=== PATIENT | male | born 1995 | race Caucasian/White ===

== ENCOUNTER 2019-05-10 11:21 | Emergency (ER) | payer SELFPAY ==
[2019-05-10 11:38] VITALS: BP 124/68; PULSE 101; TEMP 101.2; BMI 32.5
[2019-05-10] MEDS ORDERED: IBUPROFEN 600 MG TABLET (FP) PO ONE ×2 (11:55→11:57)
--- NOTE | 2019-05-10 11:56 | PDOC ---
History of Present Illness - General Chief Complaint: Sore Throat Stated Complaint: FEVER/ SORE THROAT Time Seen by Provider: 05/10/19 11:50 History Source: Patient Exam Limitations: No Limitations - History of Present Illness Initial Comments: 05/10/19 11:55 Patient here with complaints of fevers, cough, body aches and sore throat pain 3 days. Has used only Tylenol yesterday Is this a multiple visit Asthma Patient?: No Presenting Symptoms: Yes: fever, runny nose, persistent cough, vomiting Past History - Travel Traveled outside of the country in the last 30 days: No Close contact w/someone who was outside of country & ill: No - Past History Allergies/Adverse Reactions: Allergies No Known Allergies Allergy (Verified 05/10/19 11:47) General Medical History: Yes: no pertinent history Immunization Status Up to Date: Yes - Social History Smoking Status: Never smoked Review of Systems - Review of Systems Able to Perform ROS?: Yes Is the patient limited Macedonian proficient: Yes Constitutional: Yes: Symptoms Reported, See HPI, Chills, Fever, Malaise HEENTM: Yes: Symptoms Reported, See HPI, Nose Congestion, Throat Pain Respiratory: Yes: See HPI, Cough Neurological: Yes: Symptoms reported, See HPI, Headache (frontal ) All Other Systems: Reviewed and Negative *Physical Exam - Vital Signs Last Vital Signs Temp Pulse Resp BP Pulse Ox 101.2 F H 101 H 16 124/68 96 05/10/19 11:36 05/10/19 11:36 05/10/19 11:36 05/10/19 11:36 05/10/19 11:36 - Physical Exam Comments: 05/10/19 11:57 GENERAL: [ The pateint is awake, alert, and appropriately interactive.] EYES: [The pupils are equal, round, and reactive to light, with clear, conjunctiva.but glassy] NOSE: [The nose with clear drainage EARS: [The ear canals and tympanic membranes are congested but landmarks easily visualed ] THROAT: [The oropharynx is clear with erythema, no exudates. The mucous membranes are moist.] NECK: [The neck is supple with mildly tender adenopathy, no menigemous] CHEST: [The lungs are coarse but clear without crackles, or wheezes.] HEART: [Heart is regular rhythm, with normal S1 and S2, no murmurs.] ABDOMEN: [The abdomen is soft and nontender with normal bowel sounds. There is no organomegaly and no mass. There is no guarding or rebound.] EXTREMITIES: [Extremities are normal.] NEURO: [Behavior is normal for age.cranky but easily, Tone is normal.] SKIN: [Skin is unremarkable without rash or swelling. There is no bruising, and there are no other signs of injury.] General Appearance: Yes: Nourished, Appropriately Dressed, Apparent Distress HEENT: positive: FAR[place], Nasal Congestion, Rhinorrhea, Sinus Tenderness. negative : TMs Normal Neck: positive: Tender, Supple, Lymphadenopathy (R), Lymphadenopathy (L) Respiratory/Chest: positive: Lungs Clear, Normal Breath Sounds Gastrointestinal/Abdominal: positive: Normal Bowel Sounds, Soft. negative: Tender Extremity: positive: Normal Capillary Refill, Normal Inspection, Normal Range of Motion Integumentary: positive: Warm, Pale Neurologic: positive: social services coordinator II-XII NML intact, Fully Oriented, Alert, Normal Mood/ Affect, Normal Response, Motor Strength 5/5 *DC/Admit/Observation/Transfer Diagnosis at time of Disposition: Upper respiratory infection, viral - Discharge Dispostion Disposition: HOME Condition at time of disposition: Stable Decision to Admit order: No - Referrals - Patient Instructions Printed Discharge Instructions: DI for Viral Upper Respiratory Infection -- Adult Additional Instructions: Rest, drink lots of fluids: Teas, water, soups, Pedialyte Saltwater gargles Steamy showers/seem to face break up mucus Avoid contact with others until fevers and cough resolved Lots of handwashing and good hygiene Continue [id number] medications for symptomatic relief Tylenol or Motrin for fever and pain Followup with private physician in one to 2 days as needed Return to emergency department for worsened symptoms, fevers, dehydration - Post Discharge Activity Forms/Work/School Notes: Back to Work
== END 2019-05-10 12:40 | disposition home or self-care (01) ==
LOC: JERFT 11:21
DX: J06.9 Acute upper respiratory infection, unspecified (principal); B97.89 Other viral agents as the cause of diseases classified elsewhere
CPT/HCPCS: 87804; 99281-25

== ENCOUNTER 2022-02-17 09:42 | Emergency (ER) | payer SELFPAY ==
[2022-02-17 09:50] VITALS: BP 135/96; PULSE 88; TEMP 99.3; BMI 355.8
[2022-02-17 11:42] LABS: THROAT:GRP A STREP NOT DETECTED (NOTDETECTED)
== END 2022-02-17 11:37 | disposition home or self-care (01) ==
LOC: JER 09:42
DX: J06.9 Acute upper respiratory infection, unspecified (principal)
CPT/HCPCS: 0241U-QW; 87651; 99283-25